=== PATIENT | male | born 1975 | race Caucasian/White ===

== ENCOUNTER 2024-10-20 14:30 | Outpatient (RCR) | payer MEDICAID, SELFPAY ==
--- NOTE | 2024-10-03 13:42 | PT.OIERPT ---
PT OP Initial Eval Patient Information Outpatient Physical Therapy Treatment Date: 10/03/24 Visit Reasons: CHRONIC MID BACK PAIN Medical Diagnosis: M54.9 Treatment Dx #1: back pain Start of Care: 10/03/24 Date of Onset: 1 yr ago Smoking Status Smoking Status: Never smoker Initial Assessment Subjective: Pt is 49 yr old male who c/o mid back pain that is sharp, burning pain x1 yr. Increased pain with sidebending and prolonged standing and after working all day he hunches fwd. PMH; renal cell carcinoma s/p nephrectomy in 2016, CKD, pulmonary nodule Imaging: none Pt goal: less back pain to stand for longer at work Objective: T/S ArOM: ? B SB 50% of normal with pain ? Extension: 20% with pain around T7-10 ? Flexion: 4 from floor ? B rotation: 50% with pain ? TTP: moderate paraspinals T7-10 Observation: high kyphosis of mid to lower T/S UE strength: 4/5 in all planes of motion ? Assessment: Pt presents with hyperkyphosis of T/S consistent with OA and degenerative changes. Pt may benefit from skilled therapy to learn HEP and has poor/fair rehab potential to meet goals due to high level of T/S kyphosis. Pt would benefit from further diagnostic imaging of T/S. Short Term and Senior Living Goals 1. Ind with HEP 2. Improved rotation to at least 75% of full 3. Pt will improve standing tolerance to at least 5 hrs with <=3/10 mid back pain Treatment Plan 1. Manual therapy ? 2. Therex ? 3. Modalities as indicated, moist heat, ice, estim, mechanical traction Frequency and Duration: 1-2x a week for 4 visits plus the eval Certification Dates: 10/03/24 to 01/01/25 Procedure Charges OP PT Eval Mod Complex 30 minutes: Yes
--- NOTE | 2024-10-10 14:38 | PT.ODAYNRPT ---
PT Outpatient Daily Note OP Daily Note Outpatient Physical Therapy Treatment Date: 10/10/24 Visit Reasons: CHRONIC MID BACK PAIN Subjective: Same as time of evaluation Objective: See f/S for therex Assessment: Hyperkyphosis and OA likely contributing to T/S pain Plan: Continue per POC Length of Time (minutes) of Treatment: 30 Minutes Procedure Charges Therapeutic Exercise 30 minutes: Yes
--- NOTE | 2024-10-13 14:47 | PT.ODAYNRPT ---
PT Outpatient Daily Note OP Daily Note Outpatient Physical Therapy Treatment Date: 10/13/24 Visit Reasons: CHRONIC MID BACK PAIN Subjective: Pt reported minimal soreness post session. Objective: see flow sheet for ther ex list. Assessment: Added t/s extension, pt completed with pain instructed to perform with tolerable range. Added MHP post PT session. Plan: Continue with pOC. Length of Time (minutes) of Treatment: 30 Minutes Procedure Charges Therapeutic Exercise 30 minutes: Yes
--- NOTE | 2024-10-20 15:29 | PT.ODAYNRPT ---
PT Outpatient Daily Note OP Daily Note Outpatient Physical Therapy Treatment Date: 10/20/24 Visit Reasons: CHRONIC MID BACK PAIN Subjective: Pt reports he was really sore after last PT session, soreness lasted about a week. Objective: Please see flow sheet for ther ex list. Assessment: Modified interventions to accommodate reported soreness. Added t/s strengthening interventions with light resistance, pt c/o soreness but no pain. Plan: Assess response to treatment. Length of Time (minutes) of Treatment: 30 Minutes Procedure Charges Therapeutic Exercise 30 minutes: Yes
== END 2024-10-23 23:59 | disposition home or self-care (01) ==
LOC: CPTX 14:30
PROVIDERS: PCP Physician Assistant; Referring Provider Physician Assistant; Visit Provider Physician Assistant
DX: M54.6 Pain in thoracic spine (principal)
CPT/HCPCS: 97110; 97162

== ENCOUNTER 2024-11-02 15:43 | Outpatient (RCR) | payer MEDICAID, SELFPAY ==
--- NOTE | 2024-11-02 17:53 | PT.ODS1RPT ---
PT OP Progress/Discharge Note Date of Service: 11/02/24 Progress Note/DC Note Progress Note/Discharge Note: Progress Note Patient Information Visit Reasons: MID BACK PAIN Service Continue Service or Discharge: Continue Service Status Subjective: Pt reports back pain relief with therapy visits and wants to continue Objective: TTP: moderate of T7-10 paraspinals Extension: 20% with pain B rotation: 50% with pain Assessment: Pt has attended the evaluation and 4/4 Rx sessions with slow progress with goals. He would benefit from continued therapy to work toward goals of improved T/S rotation and standing tolerance. Plan: We will need provider's signature on this progress note to extend the POC to 12 visits and additional authorized visits to continue with therapy. Procedure Charges Therapeutic Exercise 30 minutes: Yes
== END 2024-11-22 23:59 | disposition home or self-care (01) ==
LOC: CPTX 15:43
PROVIDERS: PCP Physician Assistant; Referring Provider Physician Assistant; Visit Provider Physician Assistant
DX: M54.6 Pain in thoracic spine (principal)
CPT/HCPCS: 97110

== ENCOUNTER → 2024-12-29 | Outpatient (CLI) | payer MEDICAID, SELFPAY ==
--- NOTE | 2024-12-29 16:13 | XR_ITS ---
Examination: CT chest with intravenous contrast CT abdomen with intravenous contrast CT pelvis with intravenous contrast 2-D coronal and sagittal reconstructions Time of exam: December 29, 2024, 1711 hours, comparison CT abdomen pelvis October 21, 2013 INDICATIONS: Diagnosis malignant neoplasm right kidney post right nephrectomy 10 years ago, restaging CTDI: vol (mGy) : 7.45 DLP: (mGycm): 647 Technique: Multiple axial images of the chest, abdomen and pelvis with intravenous contrast, 3.0 mm slice thickness. Images obtained post intravenous injection Isovue 45 cc Isovue-300 2-D sagittal and coronal reconstructions. Low dose protocols were performed. One or more of the following dose reduction techniques were used; automated exposure control, adjustment of the mA and/or KV according to patient size, use of iterative reconstruction technique. Findings: Left thyroid nodules, the largest 12 mm No thoracic aortic aneurysmal dilatation or dissection Pulmonary artery segments are nonenlarged. No paratracheal tracheobronchial or bronchopulmonary adenopathy 5 mm pleural-based pulmonary nodule posterior right lung image 258 4 mm pleural-based nodule lingular segment image 270 5 mm pleural-based pulmonary nodule posterior left lung image 289 No pneumonia or pulmonary edema No visualized liver or splenic lesion Aorta in the abdomen normal size Absent right kidney Normal appendix There are small subcentimeter lymph nodes in the right pericecal region No bowel obstruction Fat tiny fat-containing umbilical hernia Abundant stool in the rectum No prostatomegaly Urinary bladder intact Diffuse mild to moderate disc narrowing thoracic lumbar spine most prominent at L4-L5 IMPRESSION: Left thyroid nodules as above, consider dedicated thyroid sonography follow-up Subcentimeter noncalcified pulmonary nodules as above, with the study as baseline recommend 6-month follow-up CT chest without contrast No interval metastatic disease in the abdomen or pelvis
== END | disposition home or self-care (01) ==
LOC: CCTX 10-27 14:31 → SCAT 15:45
PROVIDERS: PCP Physician Assistant; Referring Provider Physician Assistant; Visit Provider Physician Assistant
DX: E04.2 Nontoxic multinodular goiter (principal); R91.8 Other nonspecific abnormal finding of lung field; N18.31 Chronic kidney disease, stage 3a; Z85.528 Personal history of other malignant neoplasm of kidney
CPT/HCPCS: 71260; 74177; A4649; Q9967